=== PATIENT | female | born 1955 | race Caucasian/White ===

== ENCOUNTER 2021-01-13 10:12 | Outpatient (REF) | payer MEDICARE, SELFPAY ==
--- NOTE | ~2021-01-13 | XR_ITS ---
EXAMINATION: XR CHEST CLINICAL INFORMATION: Chronic obstructive pulmonary disease COMPARISON: None TECHNIQUE: 2 views of the chest were obtained. FINDINGS: There is some flattening of the diaphragms and upper lobe hyperlucency consistent with emphysema.. No focal consolidation or mass. Normal pulmonary vascularity. No pleural effusion or pneumothorax. Normal heart size. Degenerative changes of the thoracic spine. XR/XR chest 2V IMPRESSION: Flattening of the diaphragms and upper lobe hyperlucency suggests emphysema. No acute pulmonary disease.
== END 2021-01-13 10:13 | disposition home or self-care (01) ==
LOC: HO.XRAY 10:12
PROVIDERS: PCP Registered Nurse; Visit Provider Hospitalist
DX: J44.9 Chronic obstructive pulmonary disease, unspecified (principal); G47.33 Obstructive sleep apnea (adult) (pediatric); M54.6 Pain in thoracic spine; G89.29 Other chronic pain
CPT/HCPCS: 71046; 99212

== ENCOUNTER → 2022-02-10 09:14 | Outpatient (BNVA) | payer OTHER, SELFPAY | PROVIDERS: PCP Registered Nurse; Visit Provider Hospitalist | DX: J41.0 Simple chronic bronchitis (principal); G47.33 Obstructive sleep apnea (adult) (pediatric); M54.6 Pain in thoracic spine; G89.29 Other chronic pain | CPT/HCPCS: 99212 ==

== ENCOUNTER 2022-10-13 08:50 | Outpatient (REF) | payer OTHER, SELFPAY ==
--- NOTE | ~2022-10-13 | XR_ITS ---
EXAMINATION: XR CHEST CLINICAL INFORMATION: Simple chronic bronchitis. COMPARISON: 01/13/2021 TECHNIQUE: 2 views of the chest were obtained. FINDINGS: There is no evidence of acute parenchymal disease, pneumothorax, or pleural effusion. Heart normal size. No evidence of pulmonary edema. Linear scarring is seen at both lung bases. XR/XR chest 2V IMPRESSION: No acute disease.
== END 2022-10-13 08:51 | disposition home or self-care (01) ==
LOC: HO.XRAY 08:50
PROVIDERS: Visit Provider Hospitalist
DX: J41.0 Simple chronic bronchitis (principal); M54.6 Pain in thoracic spine; G89.29 Other chronic pain; G47.33 Obstructive sleep apnea (adult) (pediatric)
CPT/HCPCS: 71046; 99212

== ENCOUNTER 2023-04-04 09:44 | Outpatient (AMB) | payer OTHER, SELFPAY ==
[2023-04-04 09:52] VITALS: PULSE 82; O2SAT 96; BMI 44.2
--- NOTE | 2023-04-04 09:52 | MHC.OFFVIS ---
Intake Vital Signs 04/04/23 09:52 Height 5 ft 6 in Weight 274 lb BMI 44.2 Pulse 82 Pulse Source Pulse Oximeter Pulse Oximetry (%) 96 Oxygen Delivery Method Room Air Intake Visit Reasons: Asthma Allergies acetaminophen [Percocet] Allergy (Severe, Verified 04/04/23 09:54) Tachycardia celecoxib [Celebrex] Allergy (Severe, Verified 04/04/23 09:54) Tachycardia morphine Allergy (Severe, Verified 04/04/23 09:54) Tachycardia oxycodone [Percocet] Allergy (Severe, Verified 04/04/23 09:54) Tachycardia HPI HPI Comments History of Present Illness Details The patient is a 67-year-old woman known history of asthma in addition to obstructive sleep apnea. The patient is currently not on CPAP therapy. Also had some point she had been on oxygen. Now she does not use anything. She does have increased risk factors for sleep apnea due to her body habitus and also her family history. She does have daytime drowsiness and does wake up with headaches at times. Her [place] score is elevated 1224. She is agreeable to getting a sleep study at this time. In the meantime she continues her respiratory therapy for asthma. Denies any recent use of prednisone or having an exacerbation her breathing at this time. 10/13/2022 the patient is here for pulmonary follow-up visit. The patient is doing otherwise okay. She has gained some weight. She has also noted some lower extremity edema. She also had a chest x-ray today demonstrating some haziness in the lungs suggesting some minimal vascular congestion. She does take it small diuretic. She does complaint of dyspnea on exertion moderate severity. She needs help with most of her activities of daily living. Back in June she was having hard time with her breathing likely a flu like symptoms. However she felt too weak to go to the hospital. Therefore she stayed home and she had a neighbor that was taking care of her. I did give her the information about [facility] where she can call to see if they can provide her care at home. Will going to go ahead and maximize respiratory therapy. In addition to that she will take diuretics, Lasix, x3 days. 04/05/2023 the patient is here for pulmonary follow-up visit. She was researched over to [facility] during the last visit. She feels that is been helpful. She does rinse her mouth after she uses it. She also has a rescue inhaler that she did but does not use more than 2 times a week. Sometimes when she does ambulate she gets short of breath. She wonders if she is hypoxic. She was to get a pulse oximeter. She is going to go to the local pharmacy. I did give her a script in order for to use her [employer] account. Otherwise she can get online. The patient also will come back and have pulmonary function studies we can consider a 6 minutes walk test for DLCO is decreased. The patient did have a chest x-ray back in September that I personally reviewed demonstrating some haziness suggesting some vascular congestion. I have given her 3 days of Lasix during that time. Clinically she sounds better at this time I do not believe that she has any volume overload status. Her. She can have a chest x-ray done specially if she is not feeling well otherwise she can have a done prior to the next visit in 4 6 months. When she returns again show her PFTs. [facility] Medical History (Updated 01/13/21 @ 22:18 by Tashi Padron MD) JON (obstructive sleep apnea) Back pain COPD (chronic obstructive pulmonary disease) Family History Other HTN (hypertension) Social History (Updated 01/13/21 @ 10:22 by NICOLE Arzate) Patient Tobacco Use Status: Never used Tobacco Review of Systems Const Denies night sweats ENT Denies change in voice, Denies lip swelling, Denies mouth pain, Reports nasal congestion, Reports nasal discharge and Denies tongue swelling Card Denies chest pain, Reports leg edema and Reports dyspnea on exertion Resp Reports cough and Reports dyspnea on exertion GI Denies abdominal pain Musc Reports back pain Neuro Denies Neuro-related abnormal movements Psych Denies no additional complaints Miquel/Lymph Denies easy bleeding and Denies lymphadenopathy Aller/Immun Denies lip swelling and Denies tongue swelling Physical Exam Vital Signs: Last Vital Signs Pulse 82 04/04/23 09:52 Pulse Ox 96 04/04/23 09:52 Oxygen Delivery Method Room Air 04/04/23 09:52 BMI result Body Mass Index 44.2 Const General: alert Neck Neck: Yes normal visual inspection, Yes full ROM and Yes no lymphadenopathy Chest Chest palpation & inspection: normal inspection of the chest Resp Effort & Inspection: normal respiratory effort Auscultation: diminished lung sounds Cardio Rate: regular rate Rhythm: regular rhythm Heart sounds: S1 normal heart sound present and S2 normal heart sound present GI Palpation (GI): Soft to palpation and nontender Auscultation: normal bowel sounds Skin General skin exam: rashes and/or lesions noted Extrem General: No clubbing, No cyanosis and Yes edema Assessment & Plan Assessment & Plan (1) COPD (chronic obstructive pulmonary disease): Code(s): J44.9 - Chronic obstructive pulmonary disease, unspecified Qualifiers: COPD type: chronic bronchitis Chronic bronchitis type: simple Qualified Code(s): J41.0 - Simple chronic bronchitis (2) Back pain: Code(s): M54.9 - Dorsalgia, unspecified Qualifiers: Back pain laterality: bilateral Back pain location: thoracic back pain Chronicity: chronic Qualified Code(s): M54.6 - Pain in thoracic spine; G89.29 - Other chronic pain (3) JON (obstructive sleep apnea): Comment: not on CPAP Code(s): G47.33 - Obstructive sleep apnea (adult) (pediatric) Plan continue Trelegy, decrease 100mcg ARGELIA as needed continue monterlukast start zyrtec CXR Consider repeating PSG F/U 4-6 months Orders: Orders XR chest 2V Today J44.9 - Chronic obstructive pulmonary disease, unspecified Medications: New albuterol sulfate 90 mcg/actuation (Ventolin HFA) 2 puffs inhalation QID 90 days PRN 3 ea 3RF shortness of breath or wheezing cetirizine (Zyrtec) 10 mg PO DAILY 30 days 30 tabs 11RF Changed From rlbtiyaowus-ckswwpksr-mduindoy 200-62.5-25 mcg (Trelegy Ellipta) 1 inh inhalation DAILY 30 days 60 ea 12RF To zdymquyufda-nhqoiwqwg-hbvapgmm 200-62.5-25 mcg (Trelegy Ellipta) 1 inh inhalation DAILY 90 days 3 ea 3RF Coding Level of Care Code Est Pt Level 4 (94461) Diagnoses Simple chronic bronchitis J41.0 COPD type: chronic bronchitis Chronic bronchitis type: simple Chronic bilateral thoracic back pain M54.6; G89.29 Back pain laterality: bilateral Back pain location: thoracic back pain Chronicity: chronic JON (obstructive sleep apnea) G47.33 Time Spent (min) 17
== END 2023-04-04 10:27 | disposition home or self-care (01) ==
PROVIDERS: PCP Registered Nurse; Visit Provider Hospitalist
DX: J41.0 Simple chronic bronchitis (principal); M54.6 Pain in thoracic spine; G89.29 Other chronic pain; G47.33 Obstructive sleep apnea (adult) (pediatric)
CPT/HCPCS: 99214

== ENCOUNTER → 2023-04-04 09:44 | Outpatient (BNVA) | payer OTHER, SELFPAY | PROVIDERS: Visit Provider Hospitalist | DX: J41.0 Simple chronic bronchitis (principal); G47.33 Obstructive sleep apnea (adult) (pediatric); M54.6 Pain in thoracic spine; G89.29 Other chronic pain | CPT/HCPCS: 99212 ==

== ENCOUNTER 2023-10-03 08:27 | Outpatient (REF) | payer OTHER, SELFPAY ==
--- NOTE | ~2023-10-03 | XR_ITS ---
EXAMINATION: XR CHEST CLINICAL INFORMATION: COPD. COMPARISON: Chest radiograph 10/13/2022. TECHNIQUE: 2 views of the chest were obtained. FINDINGS: Stable prominence of the cardiomediastinal silhouette. Unchanged increased interstitial markings. No focal consolidation, pleural effusion or pneumothorax. Subtle nodular-like opacity in the lateral right midlung projecting at the level of the posterior eighth rib. No acute osseous findings. Visualized upper abdomen is within normal limits. XR/XR chest 2V IMPRESSION: 1. Subtle nodular-like opacity in the lateral right midlung. Recommend correlation with a nonemergent chest CT. 2. Chronic increased interstitial markings. 3. No focal consolidation, pleural effusion or pneumothorax. 4. Stable prominence of the cardiomediastinal silhouette. The report will be called to the ordering clinician by a [facility] [employer]icer.
== END 2023-10-03 08:28 | disposition home or self-care (01) ==
LOC: HO.XRAY 08:27
PROVIDERS: PCP Registered Nurse; Visit Provider Hospitalist
DX: J44.9 Chronic obstructive pulmonary disease, unspecified (principal); G47.33 Obstructive sleep apnea (adult) (pediatric); M54.6 Pain in thoracic spine; G89.29 Other chronic pain
CPT/HCPCS: 71046; 94640; 99212

== ENCOUNTER 2023-10-03 08:55 | Outpatient (AMB) | payer OTHER, SELFPAY ==
[2023-10-03 09:19] VITALS: PULSE 89; O2SAT 97; BMI 44.2
--- NOTE | 2023-10-03 09:19 | A.OFFVIS_ITS ---
Intake Vital Signs 10/03/23 09:19 Height 5 ft 6 in Weight 273 lb 13.026 oz BMI 44.2 Pulse 89 Pulse Source Pulse Oximeter Pulse Oximetry (%) 97 Oxygen Delivery Method Room Air Intake Visit Reasons: Asthma Allergies acetaminophen [Percocet] Allergy (Severe, Verified 10/03/23 09:21) Tachycardia celecoxib [Celebrex] Allergy (Severe, Verified 10/03/23 09:21) Tachycardia morphine Allergy (Severe, Verified 10/03/23 09:21) Tachycardia oxycodone [Percocet] Allergy (Severe, Verified 10/03/23 09:21) Tachycardia HPI HPI Comments History of Present Illness Details The patient is a 68-year-old woman known history of asthma in addition to obstructive sleep apnea. The patient is currently not on CPAP therapy. Also had some point she had been on oxygen. Now she does not use anything. She does have increased risk factors for sleep apnea due to her body habitus and also her family history. She does have daytime drowsiness and does wake up with headaches at times. Her [place] score is elevated 07/10. She is agreeable to getting a sleep study at this time. In the meantime she continues her respiratory therapy for asthma. Denies any recent use of prednisone or having an exacerbation her breathing at this time. 10/13/2022 the patient is here for pulricky ceja follow-up visit. The patient is doing otherwise okay. She has gained some weight. She has also noted some lower extremity edema. She also had a chest x-ray today demonstrating some haziness in the lungs suggesting some minimal vascular congestion. She does take it small diuretic. She does complaint of dyspnea on exertion moderate severity. She needs help with most of her activities of daily living. Back in June she was having hard time with her breathing likely a flu like symptoms. However she felt too weak to go to the hospital. Therefore she stayed home and she had a neighbor that was taking care of her. I did give her the information about [facility] where she can call to see if they can provide her care at home. Will going to go ahead and maximize respiratory therapy. In addition to that she will take diuretics, Lasix, x3 days. 04/05/2023 the patient is here for pulricky ceja follow-up visit. [facility] during the last visit. She feels that is been helpful. She does rinse her mouth after she uses it. She also has a rescue inhaler that she did but does not use more than 2 times a week. Sometimes when she does ambulate she gets short of breath. She wonders if she is hypoxic. She was to get a pulse oximeter. She is going to go to the local pharmacy. I did give her a script in order for to use her [employer] account. Otherwise she can get online. The patient also will come back and have pulmonary function studies we can consider a 6 minutes walk test for DLCO is decreased. The patient did have a chest x-ray back in September that I personally reviewed demonstrating some haziness suggesting some vascular congestion. I have given her 3 days of Lasix during that time. Clinically she sounds better at this time I do not believe that she has any volume overload status. Her. She can have a chest x-ray done specially if she is not feeling well otherwise she can have a done prior to the next visit in 4 6 months. When she returns again show her PFTs. 10/03/2023 the patient is here for a pulm onary follow-up visit. Since we last spoke the patient states that for the last 2 but she has been struggling with a cough. Start initially a viral syndrome and then it got worse with a productive cough. At his worse she noticed some hemoptysis. It was blood-tinged sputum mixed in with regular sputum. Although she has not noticed any more blood- tinged sputum. She is still coughing up yellow phlegm at this time. Does have some shortness breath with activity. She is also noticed some lower extremity edema. She did have a chest x-ray today which I personally reviewed it appears that she does have some vascular congestion again. The last time I did give her Lasix for 3 days I will give her Lasix it now again for 3-5 days. In addition to the she does have a productive cough significant chest congestion and I do believe she has component of bronchitis. No evidence of any crackles or rales at this time. She continues on the Trelegy inhaler which appears to be affecting beneficial. Will have her take the additional medication and follow- up in 4 months. [facility] Medical History (Updated 01/13/21 @ 22:18 by Tashi Padron MD) JON (obstructive sleep apnea) Back pain COPD (chronic obstructive pulmonary disease) Family History Other HTN (hypertension) Social History (Updated 01/13/21 @ 10:22 by NICOLE Arzate) Patient Tobacco Use Status: Never used Tobacco Review of Systems Const Denies night sweats ENT Denies change in voice, Denies lip swelling, Denies mouth pain, Reports nasal congestion, Reports nasal discharge and Denies tongue swelling Card Denies chest pain, Reports leg edema and Reports dyspnea on exertion Resp Reports cough and Reports dyspnea on exertion GI Denies abdominal pain Musc Reports back pain Neuro Denies Neuro-related abnormal movements Psych Denies no additional complaints Miquel/Lymph Denies easy bleeding and Denies lymphadenopathy Aller/Immun Denies lip swelling and Denies tongue swelling Physical Exam Vital Signs: Last Vital Signs Pulse 89 10/03/23 09:19 Pulse Ox 97 10/03/23 09:19 Oxygen Delivery Method Room Air 10/03/23 09:19 BMI result Body Mass Index 44.2 Const General: alert Neck Neck: Yes normal visual inspection, Yes full ROM and Yes no lymphadenopathy Chest Chest palpation & inspection: normal inspection of the chest Resp Effort & Inspection: normal respiratory effort Auscultation: diminished lung sounds Cardio Rate: regular rate Rhythm: regular rhythm Heart sounds: S1 normal heart sound present and S2 normal heart sound present GI Palpation (GI): Soft to palpation and nontender Auscultation: normal bowel sounds Skin General skin exam: rashes and/or lesions noted Extrem General: No clubbing, No cyanosis and Yes edema Office Procedures Nebulizer Treatment Nebulizer Treatment [id number]/[id number] RX initial, or Nebulizer Subsequent Treatment Office Meds albuterol sulfate 2.5 mg/3 mL (0.083 %) solution for nebulization Performing Provider: Tashi Padron MD Performing Location: [facility] Administered by: Zuleyma Arias LPN on 10/03/23 09:35 Dose Route Admin Location Dispensed Lot Number Expiration Date NDC It Support Consultant 2.5 mg inhalation 3 mL [id number] 10/15/24 5235-6156-52 MYLAN Assessment & Plan Assessment & Plan (1) COPD (chronic obstructive pulmonary disease): Code(s): J44.9 - Chronic obstructive pulmonary disease, unspecified Qualifiers: COPD type: chronic bronchitis Chronic bronchitis type: simple Qualified Code(s): J41.0 - Simple chronic bronchitis (2) Back pain: Code(s): M54.9 - Dorsalgia, unspecified Qualifiers: Back pain location: thoracic back pain Chronicity: chronic Back pain laterality: bilateral Qualified Code(s): M54.6 - Pain in thoracic spine; G89.29 - Other chronic pain (3) JON (obstructive sleep apnea): Comment: not on CPAP Code(s): G47.33 - Obstructive sleep apnea (adult) (pediatric) Plan continue Trelegy 100mcg ARGELIA as needed continue monterlukast zyrtec as needed lasix x 3-5 days (CXR with from pulmonary vascular congestion) Consider repeating PSG F/U 4-6 months Orders: Orders AMB Nebulizer Treatment Today J44.9 - Chronic obstructive pulmonary disease, unspecified Medications: New amoxicillin-pot clavulanate 875-125 mg 1 tab PO BID 10 days 20 tabs 0RF Changed From furosemide (Lasix) 20 mg PO DAILY 3 tabs 0RF To furosemide (Lasix) 20 mg PO DAILY 7 days 7 tabs 0RF Refilled albuterol sulfate 2.5 mg (3 mL) inhalation Q4H 90 days PRN 540 mL 3RF shortness of breath or wheezing albuterol sulfate 90 mcg/actuation (Ventolin HFA) 2 puffs inhalation QID 90 days PRN 3 ea 3RF shortness of breath or wheezing kipzeayqbca-nnsbzwlkp-bwgaynxn 200-62.5-25 mcg (Trelegy Ellipta) 1 inh inhalation DAILY 90 days 3 ea 3RF Coding Level of Care Code Est Pt Level 4 (98385) Diagnoses Simple chronic bronchitis J41.0 COPD type: chronic bronchitis Chronic bronchitis type: simple Chronic bilateral thoracic back pain M54.6; G89.29 Back pain location: thoracic back pain Chronicity: chronic Back pain laterality: bilateral JON (obstructive sleep apnea) G47.33 CPT Codes Nebulizer Treatment - Nebulizer Treatment, initial or subsequent: [id number] Nebulizer/MDI RX initial, or Nebulizer Subsequent Treatment ([id number]) Time Spent (min) 17
== END 2023-10-03 09:44 | disposition home or self-care (01) ==
PROVIDERS: PCP Registered Nurse; Visit Provider Hospitalist
DX: J41.0 Simple chronic bronchitis (principal); M54.6 Pain in thoracic spine; G89.29 Other chronic pain; G47.33 Obstructive sleep apnea (adult) (pediatric)
CPT/HCPCS: 99214